=== PATIENT | female | born 1965 | race Caucasian/White ===

== ENCOUNTER → 2019-12-15 | Outpatient (CLI) | payer OTHER ==
--- NOTE | 2019-12-16 04:44 | KCIC ---
EXAM: MRI right shoulder DATE: 12/15/2019 11:00 AM COMPARISON: None INDICATION: RIGHT SHOULDER PAIN / Spl. Instructions: / History: Right sided arm pain, woke up with a stiff neck and arm pain a few mths ago TECHNIQUE: Multiplanar, multisequence MRI of the right shoulder was performed without contrast. FINDINGS: AC joint degenerative changes are seen. Type 2 acromion. No os acromiale. Subacromial-subdeltoid bursal edema likely bursitis. No glenohumeral joint effusion. Moderate increased signal within the intra-articular long head biceps tendon consistent with tendinosis. No rotator cuff tear is seen. Edema is seen within the teres minor muscle belly without fatty atrophy. No obvious quadrilateral space mass is seen. Otherwise rotator cuff muscle signal and bulk is normal without fatty atrophy. Evaluation of the labrum limited on this nonarthrographic study. Within these constraints no discrete labral tear is seen. Articular cartilage is grossly preserved. No fracture or osteonecrosis. IMPRESSION: 1. No discrete rotator cuff tear is seen. 2. Edema, without fatty atrophy, of the teres minor muscle belly may be seen with strain or quadrilateral space syndrome, although no discrete quadrilateral space mass is seen. 3. AC joint degenerative changes are seen. Subacromial-subdeltoid bursal edema likely bursitis. 4. Intra-articular long head biceps tendinosis. Electronically signed by: Vishnu Benton MD (12/16/2019 4:41 AM) [facility]
== END | disposition home or self-care (01) ==
LOC: KCIC MRI 10:52
PROVIDERS: ATTEND Family Medicine
DX: M19.011 Primary osteoarthritis, right shoulder (principal); M25.411 Effusion, right shoulder
CPT/HCPCS: 73221

== ENCOUNTER → 2020-03-06 | Outpatient (CLI) | payer OTHER ==
--- NOTE | 2020-03-06 11:52 | KCIC ---
EXAM: Cervical spine MRI without contrast. HISTORY: Right upper extremity radiculopathy. TECHNIQUE: Multiplanar, multisequence magnetic resonance imaging of the cervical spine was performed without contrast. COMPARISON: None. FINDINGS: There is straightening of cervical lordosis. There is minimal anterolisthesis of C4 on C5, measuring 2 mm. There is multilevel endplate remodeling, primarily at C5-C6 and C6-C7. There is no fracture or suspicious osseous lesion. No spinal cord lesion is seen. At C2-C3, there is mild bilateral facet arthropathy. There is no stenosis. At C3-C4, there is mild endplate remodeling. There is mild bilateral facet arthropathy. There is no stenosis. At C4-C5, there is mild endplate remodeling. There is mild bilateral facet arthropathy. There is no stenosis. At C5-C6, there is a posterior central disc protrusion superimposed on a disc bulge and endplate osteophytosis. There is mild bilateral facet arthropathy. There is uncovertebral arthropathy. There is mild right and [id number] left foraminal stenosis. There is slight flattening of the ventral aspect of the spinal cord and mild central canal stenosis measuring 8.6 mm in anterior posterior dimension. At C6-C7, there is a posterior central disc protrusion superimposed on a disc bulge and endplate remodeling. There is uncovertebral arthropathy. There is mild bilateral foraminal stenosis. IMPRESSION: Multilevel degenerative change involving the cervical spine, described in detail above. This is associated with mild right and mild to moderate left foraminal and mild central canal stenosis at C5-C6 and mild bilateral foraminal stenosis at C6-C7. Electronically signed by: Anni Reynoso MD (03/06/2020 11:50 AM) [id number]
== END ==
LOC: KCIC MRI 10:19
PROVIDERS: ATTEND Orthopaedic Surgery
DX: M47.22 Other spondylosis with radiculopathy, cervical region (principal); M50.123 Cervical disc disorder at C6-C7 level with radiculopathy; M48.02 Spinal stenosis, cervical region
CPT/HCPCS: 72141